=== PATIENT | female | born 2000 | race African-American/Black ===

== ENCOUNTER 2021-09-20 19:30 | Emergency (ER) | payer BC, SELFPAY ==
[2021-09-20 19:37] VITALS: BP 128/78; PULSE 92; RESP 16; TEMP 36.7; O2SAT 100
--- NOTE | 2021-09-20 19:48 | ED.FEMALEGU ---
HPI - Female Genitourinary General Chief complaint: Urogenital-Female Stated complaint: frequent urination/tired/nausea Time Seen by Provider: 09/20/21 20:10 Source: patient and RN notes reviewed Mode of arrival: ambulatory Limitations: no limitations History of Present Illness HPI Narrative: 21-year-old female presents with concern for urine frequent C, strong smelling odor with urination, nausea. Reports 10-day history of symptoms. Reports her menstrual period is late, she is unsure of the date of her last menstrual period she reports bilateral low back pain. She denies dysuria, urgency, hematuria. She denies abnormal vaginal discharge or bleeding. MD elicited complaint: UTI Related Data Allergies Allergy/AdvReac Type Severity Reaction Status Date / Time Penicillins Allergy Hives Verified 09/20/21 19:48 Review of Systems Review of Systems: CONSTITUTIONAL: Denies malaise, chills, sweats, or fever. CARDIOVASCULAR: Denies chest pain, palpitations, or edema. RESPIRATORY: Denies cough or dyspnea. GASTROINTESTINAL: Denies abdominal pain, vomiting, diarrhea. Reports nausea GENITOURINARY: Reports dysuria, frequency, urgency, suprapubic pressure. Reports bilateral low back pain, urine frequency, strong smelling urine SKIN: Denies rash or itching. MUSCULOSKELETAL: Denies myalgia. All systems reviewed & are unremarkable except as noted in HPI and below PMFSH Comments At time of signature, agree with nursing past medical, surgical, social and family history. There is no relevant family history pertinent to the presenting complaint Exam Narrative: GENERAL: Well-appearing, well-nourished, and in no acute distress. HEAD: Normocephalic. EYES: PERRLA, conjunctivae clear. NECK: Supple. No lymphadenopathy CHEST: Clear to auscultation. No respiratory distress. HEART: Regular rate and rhythm. ABDOMEN: Soft, nontender upon palpation, nondistended, normal active bowel sounds, no palpable or pulsatile masses, no guarding. No CVA tenderness SKIN: Warm, dry, no rash. NEURO: Alert and oriented x3. PSYCH: Normal mood and affect Course Course Emergency Course: Patient is aware of diagnosis, understands and agrees to treatment plan. Anticipatory guidance given. Patient agrees to follow-up as directed and is aware of reasons to seek care at the emergency department. Portions of this record may have been created with voice recognition software Level of Care: Express Care Visit Vital Signs Vital signs: Vital Signs Temperature 98.0 F 09/20/21 19:37 Pulse Rate 92 09/20/21 19:37 Respiratory Rate 16 09/20/21 19:37 Blood Pressure 128/78 09/20/21 19:37 Pulse Oximetry 100 09/20/21 19:37 Oxygen Delivery Room Air 09/20/21 19:37 Temperature 98.0 F 09/20/21 19:37 Pulse Rate 92 09/20/21 19:37 Respiratory Rate 16 09/20/21 19:37 Blood Pressure 128/78 09/20/21 19:37 Pulse Oximetry 100 09/20/21 19:37 Oxygen Delivery Room Air 09/20/21 19:37 Reviewed. MDM - Female Genitourinary MDM Narrative Medical decision making narrative: Exam findings and UA show no acute concerns or changes; patient is non-toxic appearing and is in no distress. Patient is appropriate for outpatient treatment and follow-up. Differential Diagnosis Differential diagnosis: Likely urinary tract infection and cystitis Critical Care Time Critical Care Time Critical Care Time: No Discharge Plan Discharge Clinical Impression: Symptoms of urinary tract infection Patient Disposition: Home, Self-Care Condition: Stable Instructions: Antibiotic Form, Urinary Tract Infection in Women (ED) Additional Instructions: We will send a urine culture to the lab; if the culture identifies an organism that the prescribed antibiotic will not treat, you will receive a phone call from an urgent care staff member and an appropriate antibiotic will be prescribed. -Your symptoms should begin to improve within a day of starting antibiotics. Bu
== END 2021-09-20 20:25 | disposition home or self-care (01) ==
PROVIDERS: Emergency Provider Nurse Practitioner; PCP Family Medicine
DX: R35.0 Frequency of micturition (principal); R11.0 Nausea
CPT/HCPCS: 81003; 81025; 87086; 99213; G0463

== ENCOUNTER 2023-03-18 13:17 | Emergency (ER) | payer OTHER, SELFPAY ==
[2023-03-18 13:33] VITALS: BP 127/81; PULSE 90; RESP 19; TEMP 36.8; O2SAT 100
[2023-03-18 16:11] LABS: Basophils Percent Auto 0.3 % (0.2-1.2); Eosinophils Absolute Auto 0.1 K/mm3 (0-0.3); Eosinophils Percent Auto 0.8 % (0-4.4); Hematocrit 43.8 % (37.0-47.0); Hemoglobin 14.2 g/dL (12.0-15.0); Immature Granulocyte Absolute 0.01 K/mm3 (0.00-0.031); Immature Granulocyte Percent A 0.2 % (0-0.5); Lymphocytes Absolute Auto 2.27 K/mm3 (0.9-3.2); Lymphocytes Percent Auto 38.3 % (18.3-44.2); Mean Corpuscular HGB Conc 32.4 g/dl (32-36); Mean Corpuscular Hemoglobin 28.2 pg (26-34); Mean Corpuscular Volume 86.9 fl (80-100); Mean Platelet Volume 8.9 fl (7.4-10.4); Monocytes Absolute Auto 0.5 K/mm3 (0.1-0.6); Monocytes Percent Auto 7.9 % (2.6-8.5); Neutrophils Absolute Auto 3.1 K/mm3 (1.3-6.7); Neutrophils Percent Auto 52.5 % (45.5-73.1); Platelet Count Result 319 k/mm3 (150-375); Red Blood Count 5.04 M/mm3 (4.2-5.4); Red Cell Distribution Width 12.4 % (11.5-14.5); White Blood Count 5.9 K/mm3 (4.5-10.0)
[2023-03-18 16:21] LABS: Anion Gap 12 mmol/L (8-16); Blood Urea Nitrogen 9 mg/dL (7-17); Calcium 9.4 mg/dL (8.4-10.2); Carbon Dioxide 27 mmol/L (22-30); Chloride 103 mmol/L (98-107); Estimated CRCL calculation 167 ml/min; Estimated Glomerular Filt Rate > 60; Glucose 117 mg/dL (65-110); Potassium 3.7 mmol/L (3.4-5.0); Sodium 142 mmol/L (137-145)
[2023-03-18 16:36] LABS: Appearance Urine Cloudy (Clear); Bacteria Urine None Seen /hpf; Bilirubin Urine Negative (Negative); Blood Urine 3+ (Negative); Color Urine Yellow (Yellow); Glucose Urine UA Negative (Negative); Ketones Urine Negative (Negative); Leukocyte Esterase Ur Trace LEU/UL (Negative); Nitrate Urine Negative (Negative); Non Pathogenic Casts 0-2; Protein Urine 1+ mg/dL (Negative); RBC Urine 21-50 /hpf (0-2); Specific Grav Ur 1.009 (1.001-1.035); Squamous Epithelial Cell Urine Occasional /hpf (Few); Urobilinogen Urine 0.2 mg/dL (<2.0); WBC Urine 0-5 /hpf; pH Urine 6.5 (5.0-9.0)
[2023-03-18 16:37] LABS: Add Urine Microscopic? YES
--- NOTE | 2023-03-18 17:45 | ED.GENADULT ---
HPI - General Adult General Chief complaint: Unspecified Stated complaint: menses x2 weeks Time Seen by Provider: 03/18/23 15:17 History of Present Illness HPI narrative: Sal Bejarano is a 22 y/o female who presents with reports of being on her menstrual cycle for about 2 weeks. She states the bleeding is very ligth at this time but it has lasted longer then her normal periods. She reports that she has felt light headed concerned about losing too much blood, she talked with her coworks about this and they are concerned that maybe she left a tampon inside and it never came out. She denies any abdominal pain/ no nausea/ vomiting /fever/ chills Related Data Allergies Allergy/AdvReac Type Severity Reaction Status Date / Time Penicillins Allergy Hives Verified 09/20/21 19:48 Review of Systems Review of Systems: CONSTITUTIONAL: Denies fever, chills, or sweats. EYES: Denies visual changes, redness, or discharge. ENT: Denies rhinorrhea, congestion, sore throat, or otalgia. CARDIOVASCULAR: Denies chest pain, palpitations, or edema. RESPIRATORY: Denies cough or dyspnea. GASTROINTESTINAL: Denies abdominal pain, nausea, vomiting, or diarrhea. GENITOURINARY: Denies dysuria or hematuria. Reports being on her menstural cycle for about 2 weeks. SKIN: Denies rash or itching. MUSCULOSKELETAL: Denies back pain, joint pain, or myalgia. NEUROLOGIC: Denies headache, numbness, dizziness, or weakness. PSYCHIATRIC: Denies anxiety or depression. Exam Narrative: GENERAL: Well-appearing, well-nourished, and in no acute distress. HEAD: Normocephalic, atraumatic. EYES: PERRLA and EOMI. ENT: Nares clear, no rhinorrhea or epistaxis. Mucous membranes moist. Oropharynx without tonsillar hypertrophy exudate or other lesions. NECK: Supple. No adenopathy or masses. No carotid bruits or JVD CHEST: Clear to auscultation. No respiratory distress. No wheezes rales or rhonchi HEART: Regular rate and rhythm. No murmur heard. Normal peripheral pulses. ABDOMEN: Soft, nontender, nondistended, normal active bowel sounds. EXTREMITIES: Normal range of motion. No edema. SKIN: Warm, dry, no rash. NEURO: No focal deficits. Alert and oriented x3. PSYCH: Normal mood and affect. Course Vital Signs Vital signs: Vital Signs Temperature 36.8 C 03/18/23 13:33 Pulse Rate 90 03/18/23 13:33 Respiratory Rate 19 03/18/23 13:33 Blood Pressure 127/81 03/18/23 13:33 Pulse Oximetry 100 03/18/23 13:33 Temperature 36.8 C 03/18/23 13:33 Pulse Rate 90 03/18/23 13:33 Respiratory Rate 19 03/18/23 13:33 Blood Pressure 127/81 03/18/23 13:33 Pulse Oximetry 100 03/18/23 13:33 Vitals reviewed by me. Medical Decision Making MDM Narrative Medical decision making narrative: On exam pt is resting comfortably/ no acute distress lung sounds clear/ abdomen soft non tender bowel sounds present / no fever/ chills/ chest pain/ shortness of breath She explains feeling light headed earlier she thought maybe she has lost too much blood since she has been onher cycle for 2 weeks which is longer then normal CBC- stable CMP - stable UA- +bld + leuks - likely UTI Urine preg- negative Pelvic exam completed with the tech as my waste disposal plant operator - scan bleeding noted/ unremarkable cervix -no tampon or foreign body noted- pt reported some discomfort with the speculum but states this is how it always has been every time she has had a pelvic exam. Plan to d/c home with treatment for her UTI SHe has follow up with her OB in the next couple weeks Close follow up with her PCP encouraged Strict return precautions provided Discussed d/c plan with pt and she verbalizes understanding and agrees, denies any other questions . Differential Diagnosis Differential Diagnosis: UTI / / anemia/ Medical Records Medical records reviewed: Yes I reviewed the external patient's medical records. Vital Signs Vital Signs: Vital Signs Temperature 36.8
[2023-03-18] MEDS: NITROFURANTOIN MONOHYD MACROCR 100 MG CAP PO (18:12)
--- NOTE | 2023-03-18 19:05 | ED.GENADULT ---
HPI - General Adult General Chief complaint: Unspecified Stated complaint: menses x2 weeks Time Seen by Provider: 03/18/23 15:17 Related Data Allergies Allergy/AdvReac Type Severity Reaction Status Date / Time Penicillins Allergy Hives Verified 09/20/21 19:48 Course Vital Signs Vital signs: Vital Signs Temperature 36.8 C 03/18/23 13:33 Pulse Rate 90 03/18/23 13:33 Respiratory Rate 19 03/18/23 13:33 Blood Pressure 127/81 03/18/23 13:33 Pulse Oximetry 100 03/18/23 13:33 Temperature 36.8 C 03/18/23 13:33 Pulse Rate 90 03/18/23 13:33 Respiratory Rate 19 03/18/23 13:33 Blood Pressure 127/81 03/18/23 13:33 Pulse Oximetry 100 03/18/23 13:33 Medical Decision Making Vital Signs Vital Signs: Vital Signs Temperature 36.8 C 03/18/23 13:33 Pulse Rate 90 03/18/23 13:33 Respiratory Rate 19 03/18/23 13:33 Blood Pressure 127/81 03/18/23 13:33 Pulse Oximetry 100 03/18/23 13:33 Temperature 36.8 C 03/18/23 13:33 Pulse Rate 90 03/18/23 13:33 Respiratory Rate 19 03/18/23 13:33 Blood Pressure 127/81 03/18/23 13:33 Pulse Oximetry 100 03/18/23 13:33 Lab Data 03/18/23 16:06 03/18/23 16:06 Labs: Lab Results 03/18/23 03/18/23 Range/Units 16:06 16:16 WBC 5.9 (4.5-10.0) K/mm3 RBC 5.04 (4.2-5.4) M/mm3 Hgb 14.2 (12.0-15.0) g/dL Hct 43.8 (37.0-47.0) % MCV 86.9 (80-100) fl MCH 28.2 (26-34) pg MCHC 32.4 (32-36) g/dl RDW 12.4 (11.5-14.5) % Plt Count 319 (150-375) k/mm3 MPV 8.9 (7.4-10.4) fl Immature Gran % (Auto) 0.2 (0-0.5) % Neut % (Auto) 52.5 (45.5-73.1) % Lymph % (Auto) 38.3 (18.3-44.2) % Nye % (Auto) 7.9 (2.6-8.5) % Eos % (Auto) 0.8 (0-4.4) % Baso % (Auto) 0.3 (0.2-1.2) % Lymph # (Auto) 2.27 (0.9-3.2) K/mm3 Nye # (Auto) 0.5 (0.1-0.6) K/mm3 Eos # (Auto) 0.1 (0-0.3) K/mm3 Baso # (Auto) 0.0 (0.0-0.1) K/mm3 Abs Immat Gran (auto) 0.01 (0.00-0.031) K/mm3 Absolute Neuts (auto) 3.1 (1.3-6.7) K/mm3 Absolute Nucleated RBC 0.0 (0.0-0.012) K/mm3 Nucleated RBC % 0.0 (0.0-0.2) % Sodium 142 (137-145) mmol/L Potassium 3.7 (3.4-5.0) mmol/L Chloride 103 (98-107) mmol/L Carbon Dioxide 27 (22-30) mmol/L Anion Gap 12 (8-16) mmol/L BUN 9 (7-17) mg/dL Creatinine 0.40 L (0.7-1.0) mg/dL Estim Creat Clear Calc 167 ml/min Estimated GFR > 60 (59 - ) Glucose 117 H (65-110) mg/dL Calcium 9.4 (8.4-10.2) mg/dL Urine Color Yellow (Yellow) Urine Appearance Cloudy H (Clear) Urine pH 6.5 (5.0-9.0) Ur Specific [place] 1.009 (1.001-1.035) Urine Protein 1+ H (Negative) mg/dL Urine Glucose (UA) Negative (Negative) mg/dL Urine Ketones Negative (Negative) mg/dL Ur Blood (Man) 3+ H (Negative) Urine Nitrate Negative (Negative) Urine Bilirubin Negative (Negative) Urine Urobilinogen 0.2 (<2.0) mg/dL Leukocyte Esterase Rfl Trace H (Negative) JAVED/UL Urine RBC 21-50 H (0-2) /hpf Urine WBC 0-5 /hpf Ur Squamous Epith Cells Occasional (Few) /hpf Urine Bacteria None seen /hpf Urine Casts 0-2 UCG Bedside Result Negative Reference Range: Negative Discharge Plan Discharge Clinical Impression: Urinary tract infection Patient Disposition: Home, Self-Care Condition: Stable Instructions: Antibiotic Form Additional Instructions: Continue to take the Macrobid for your UTI twice daily for 5 days Stay hydrated/ drink plenty of fluids Follow up with your PCP in 1 week Follow up with your OBGYN as discussed Return to the ED for any worsening symptoms or concerns. Prescriptions: New nitrofurantoin monohyd/m-cryst [Macrobid] 100 mg capsule 100 mg PO Q12H 5 Days Qty: 10 0RF Rx Instructions: must administer with a meal/food No Action sulfamethoxazole-trim
== END 2023-03-18 18:15 | disposition home or self-care (01) ==
PROVIDERS: Emergency Provider Nurse Practitioner Family; PCP Family Medicine
DX: N30.01 Acute cystitis with hematuria (principal)
CPT/HCPCS: 36415; 80048; 81001; 81025; 85025; 99283; A9270